=== PATIENT | male | born 1955 | race Caucasian/White ===

== ENCOUNTER 2020-08-11 07:07 | Day surgery (SDC) | payer OTHER ==
[~2020-08-11] VITALS: Ht 170.2 cm; Wt 77.3 kg
[2020-08-11] MEDS ORDERED: SODIUM CHLORIDE 0.9% 1,000 ML IV SCH (07:30)
[2020-08-11] MEDS ORDERED: PLEASE ENTER HEIGHT AND WEIGHT MC SCH (08:00)
[2020-08-11] MEDS ORDERED: PLEASE ENTER ALLERGIES MC SCH (08:00)
[2020-08-11 08:15] VITALS: BP 124/75
[2020-08-11 08:43] LABS: INTERNATIONAL NORMALIZED RATIO 1.11 (0.93-1.1); PROTHROMBIN TIME 11.4 Seconds (9.6-11.5)
[2020-08-11] MEDS ORDERED: FENTANYL PF 100 MCG/2ML ONE ×2 (09:02→09:03)
[2020-08-11] MEDS ORDERED: MIDAZOLAM 1 MG/ML, 5ML ONE (09:03)
[2020-08-11] MEDS ORDERED: FLUMAZENIL 0.1 MG/1 ML, 5ML ONE (09:03)
[2020-08-11] MEDS ORDERED: NALOXONE 1 MG/ML, 2ML ONE (09:03)
== END 2020-08-11 11:50 | disposition home or self-care (01) ==
LOC: OUT 07:07
PROVIDERS: ATTEND Family Medicine
DX: R16.0 Hepatomegaly, not elsewhere classified (principal); K72.90 Hepatic failure, unspecified without coma; I10 Essential (primary) hypertension; E78.5 Hyperlipidemia, unspecified; M19.90 Unspecified osteoarthritis, unspecified site; F10.10 Alcohol abuse, uncomplicated; D72.829 Elevated white blood cell count, unspecified; R73.9 Hyperglycemia, unspecified; R76.8 Other specified abnormal immunological findings in serum; Z79.899 Other long term (current) drug therapy; Z87.891 Personal history of nicotine dependence; Z80.0 Family history of malignant neoplasm of digestive organs
CPT/HCPCS: 36415; 47000; 77012; 85610; 88307; 88341; 88342; 99156; J2250; J3010; J2310

== ENCOUNTER 2020-09-05 06:22 | Day surgery (SDC) | payer BC, OTHER ==
[~2020-09-05] VITALS: Ht 170.2 cm; Wt 79.0 kg
[2020-09-05 07:05] VITALS: BP 124/80
[2020-09-05] MEDS ORDERED: SODIUM CHLORIDE 0.9% 1,000 ML IV SCH (07:30)
[2020-09-05 07:36] LABS: INTERNATIONAL NORMALIZED RATIO 1.11 (0.93-1.1); PROTHROMBIN TIME 11.4 Seconds (9.6-11.5)
[2020-09-05] MEDS ORDERED: NALOXONE 1 MG/ML, 2ML ONE (07:58)
[2020-09-05] MEDS ORDERED: MIDAZOLAM 1 MG/ML, 5ML ONE (07:58)
[2020-09-05] MEDS ORDERED: FLUMAZENIL 0.1 MG/1 ML, 5ML ONE (07:58)
[2020-09-05] MEDS ORDERED: FENTANYL PF 100 MCG/2ML ONE (07:58)
== END 2020-09-05 10:40 | disposition home or self-care (01) ==
LOC: OUT 06:22
PROVIDERS: ATTEND Pathology Hematology
DX: K76.9 Liver disease, unspecified (principal); C22.0 Liver cell carcinoma; I10 Essential (primary) hypertension; B19.20 Unspecified viral hepatitis C without hepatic coma; F12.10 Cannabis abuse, uncomplicated; Z79.899 Other long term (current) drug therapy; Z87.891 Personal history of nicotine dependence; Z80.0 Family history of malignant neoplasm of digestive organs
CPT/HCPCS: 36415; 47000; 76942; 85610; 88307; 88313; 88333; 99156; 99157; J2250; J3010; 77012; J2310